=== PATIENT | female | born 1980 | race Caucasian/White ===

== ENCOUNTER → 2023-05-24 11:16 | Outpatient (REF) | payer OTHER, SELFPAY ==
[2023-05-24 13:36] LABS: ALT (SGPT) 13 U/L (0-35); AST (SGOT) 15 U/L (14-36); Albumin 4.3 g/dl (3.5-5.0); Alkaline Phosphatase 66 U/L (38-126); Blood Urea Nitrogen 14 mg/dl (7-17); Calcium 9.6 mg/dl (8.4-10.2); Carbon Dioxide 27 mmol/L (22-30); Chloride 103 mmol/L (98-107); Glucose 93 mg/dl (70-99); Potassium 4.5 mmol/L (3.5-5.1); Sodium 134 mmol/L (135-145); Total Bilirubin 0.5 mg/dl (0.2-1.3); Total Protein 7.1 g/dl (6.3-8.2); eGFR > 60.00
[2023-05-24 13:47] LABS: D-Dimer 0.34 ug/mlFEU (0.00-0.50)
== END ==
LOC: RAD 11:16
PROVIDERS: ATTENDING PHYSICIAN Nurse Practitioner Family; FAMILY PHYSICIAN Family Medicine
DX: R07.81 Pleurodynia (principal)
CPT/HCPCS: 36415; 71046; 80053; 85379

== ENCOUNTER → 2023-11-22 13:18 | Outpatient (REF) | payer OTHER, SELFPAY | LOC: WDC 13:18 | PROVIDERS: ATTENDING PHYSICIAN Obstetrics & Gynecology Gynecology; FAMILY PHYSICIAN Family Medicine | DX: Z12.31 Encounter for screening mammogram for malignant neoplasm of breast (principal) | CPT/HCPCS: 77063; 77067 ==

== ENCOUNTER → 2023-11-29 06:23 | Day surgery (SDC) | payer OTHER, SELFPAY | LOC: GI 06:23 | PROVIDERS: ATTENDING PHYSICIAN Internal Medicine | DX: Z12.11 Encounter for screening for malignant neoplasm of colon (principal); Z83.710 Family history of adenomatous and serrated polyps; K63.5 Polyp of colon | CPT/HCPCS: 45385; 88305 ==

== ENCOUNTER → 2024-03-22 14:13 | Outpatient (REF) | payer OTHER, SELFPAY | LOC: RAD 14:13 | PROVIDERS: ATTENDING PHYSICIAN Family Medicine; FAMILY PHYSICIAN Family Medicine | DX: R07.81 Pleurodynia (principal); J10.1 Influenza due to other identified influenza virus with other respiratory manifestations | CPT/HCPCS: 71101 ==

== ENCOUNTER → 2024-11-22 12:19 | Outpatient (REF) | payer OTHER, SELFPAY | LOC: WDC 12:19 | PROVIDERS: ATTENDING PHYSICIAN Obstetrics & Gynecology Gynecology; FAMILY PHYSICIAN Family Medicine | DX: Z12.31 Encounter for screening mammogram for malignant neoplasm of breast (principal) | CPT/HCPCS: 77063; 77067 ==